=== PATIENT | male | born 1995 | race Caucasian/White ===

== ENCOUNTER → 2016-12-08 | Outpatient (CLI) | payer BC ==
[~2016-12-08] VITALS: Ht 177.8 cm; Wt 59.0 kg
[~2016-12-08] MED LIST: GADOBUTROL 7.5 MMOL/7.5 ML (GADAVIST) VIAL IV ONE; IOHEXOL 300 MG/ML 30 ML (OMNIPAQUE 300) VIAL IV ONE
[2016-12-08 14:06] VITALS: BP 112/68
[2016-12-08 14:45] VITALS: BP 112/70
--- NOTE | 2016-12-08 15:29 | Diagnostic Imaging Report ---
EXAMINATION: Fluoroscopic guided joint injection/arthrogram- shoulder. INDICATION: Left shoulder pain, request for MR arthrogram of the shoulder is submitted. Fluoroscopy time: 20 seconds CONSENT: Informed consent was obtained from the patient. The risks, benefits, potential complications and alternatives were reviewed and all questions answered to the patient's satisfaction. PROCEDURE: After sterile preparation and draping, 1% lidocaine was utilized for local anesthesia. A 22 spinal needle is introduced into the glenohumeral joint under fluoroscopic guidance. After confirmation of proper positioning with intra-articular injection of, 12 ml of 1:150 concentration of Gadavist in normal saline is injected the into the joint. The patient tolerated the procedure well with no immediate complications. FINDINGS: Arthrogram demonstrates Normal distribution of contrast in the joint with no filling of the subacromial subdeltoid bursa seen. IMPRESSION: Successful fluoroscopic guided injection of diluted gadolinium into the left shoulder . MR arthrogram to follow. Dictated by: Dictated on workstation # [id number]
--- NOTE | 2016-12-08 16:01 | Diagnostic Imaging Report ---
PROCEDURE: MRI left joint upper extremity with contrast. TECHNIQUE: Multiplanar, multisequence MRI with intra-articular contrast of left shoulder was accomplished. INDICATION: Left shoulder pain. History of left shoulder labral repair performed on 11/08/12. COMPARISON: No prior studies are available for comparison. FINDINGS: There are cystic changes in the posterolateral aspect of the humeral head associated with a focal depression in the cortex suggestive of an old injury. There is no significant bone marrow edema seen. The focal area of depression has bright signal on T1, similar to the contrast within the joint suggestive of communication with the joint. It corresponds to the greater tuberosity medial aspect just proximal to the insertion of the infraspinatus anterior fibers. The adjacent infraspinatus tendon insertion demonstrates an articular-sided partial tear. No retracted tear. The supraspinatus tendon appears intact. The long head biceps tendon appears intact. The subscapularis tendon appears intact. The biceps anchor on the labrum and the rest of the labrum tissue also appear intact with no evidence of tear. Contrast extending deep to the anterosuperior aspect of the labrum better seen on the ABER view is probably related to sublabral foramen, commonly seen in this location. There is no leakage of contrast into the subacromial-subdeltoid bursa. The muscle bulk and signal is normal. The acromioclavicular joint appears normal. IMPRESSION: There is cystic change and focal depression along the posterolateral aspect of the humeral head likely related to old injury. The adjacent infraspinatus anterior fibers demonstrate partial tear along the articular surface near its insertion. Dictated by: Dictated on workstation # [id number]
== END ==
LOC: RAD 13:49
PROVIDERS: ATTEND Orthopaedic Surgery
DX: S46.812A Strain of other muscles, fascia and tendons at shoulder and upper arm level, left arm, initial encounter (principal); X58.XXXA Exposure to other specified factors, initial encounter; Y99.8 Other external cause status
CPT/HCPCS: 23350; 73040; 73222